=== PATIENT | female | born 1995 | race Caucasian/White ===

== ENCOUNTER → 2017-06-10 | Outpatient (CLI) | payer BC ==
[~2017-06-10] MED LIST: BCPILLS PO
[2017-06-10 10:11] LABS: ALT/SGPT 23 U/L (12-78); AST/SGOT 16 U/L (15-37); BLOOD UREA NITROGEN 13 mg/dl (7-18); BUN/CREATININE RATIO 24.6 (10-20); CALCIUM 8.5 mg/dl (8.5-10.1); CARBON DIOXIDE 25 mmol/L (21-32); CHLORIDE 105 mmol/L (98-107); CREATININE 0.55 mg/dl (0.60-1.20); GLUCOSE 89 mg/dl (70-99); POTASSIUM 4.1 mmol/L (3.5-5.1); SODIUM 136 mmol/L (136-145)
[2017-06-10 10:17] LABS: FERRITIN 69.2 ng/ml (8.0-388.0)
== END | disposition home or self-care (01) ==
LOC: C.LAB 07:24
DX: E61.1 Iron deficiency (principal); L40.9 Psoriasis, unspecified; M06.4 Inflammatory polyarthropathy

== ENCOUNTER → 2017-09-22 | Outpatient (CLI) | payer OTHER ==
[2017-09-22 09:32] LABS: BASO % 0.2 %; BASO ABS # 0.01 K/uL (0-0.2); EOS % 2.2 %; EOS ABS # 0.12 K/uL (0-0.5); HEMATOCRIT 41.4 % (37-47); HEMOGLOBIN 14.1 g/dL (12.0-16.0); IG# 0.01 K/uL (0.00-0.02); LYMPH ABS # 2.19 K/uL (1.2-3.4); MEAN CELL VOLUME 95.8 fL (80-100); MEAN CORPUSCULAR HEMOGLOBIN 32.6 pg (25-34); MEAN CORPUSCULAR HGB CONC 34.1 g/dl (32-36); MEAN PLATELET VOLUME 9.2 fL (7.4-10.4); MONO % 10.4 %; MONO ABS # 0.57 K/uL (0.11-0.59); NEUT ABS # 2.57 K/uL (1.4-6.5); PLATELET COUNT 274 K/uL (130-400); RED CELL DISTRIBUTION WIDTH CV 13.1 % (11.5-14.5); RED CELL DISTRIBUTION WIDTH SD 45.8 fL (36.4-46.3); WHITE BLOOD COUNT 5.47 K/uL (4.8-10.8)
[2017-09-22 09:58] LABS: ALT/SGPT 25 U/L (12-78); AST/SGOT 15 U/L (15-37); BLOOD UREA NITROGEN 15 mg/dl (7-18); CALCIUM 8.6 mg/dl (8.5-10.1); CARBON DIOXIDE 28 mmol/L (21-32); CREATININE 0.57 mg/dl (0.60-1.20); GLUCOSE 93 mg/dl (70-99); POTASSIUM 3.6 mmol/L (3.5-5.1); SODIUM 135 mmol/L (136-145)
== END | disposition home or self-care (01) ==
LOC: C.LAB 07:26
DX: M19.90 Unspecified osteoarthritis, unspecified site (principal); E61.1 Iron deficiency

== ENCOUNTER 2025-07-18 12:30 | Observation (INO) ==
--- NOTE | 2025-07-18 12:50 | Emergency Department Note ---
History of Present Illness General Chief complaint: Vaginal Bleeding Stated complaint: POST OP CKC, VAGINAL BLEEDING Time Seen by Provider: 07/18/25 12:36 History of Present Illness Maximum Pain Intensity: 5 This is an otherwise healthy 29-year-old female that presents to the emergency department via private vehicle with complaints of "vaginal bleeding". The patient is post CKC performed at [facility] about 3 weeks ago. She notes this was secondary to OLIVIER-3. She has had expected vaginal bleeding daily but the past 2 days notes larger amount of bleeding and passed a large clot this morning beginning around 10am. She was instructed if large clots are passed that she is to present for evaluation. She does feel overall tired and bit dizzy but overall well. No fever. She denies any pain at the present time. No fevers, chills, nausea or vomiting. No history of bleeding disorders but does note factor V history. No pertinent surgeries. No known drug allergies. 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 Beliefs That Will Affect Care: None Current Living Situation: Family Other Information That Helps Us Care for You: No Feels Safe at Home: Yes Safety Concerns: Feels Safe At This Time Assistive Devices: None Review of Systems A total of 10 systems reviewed and were otherwise negative Physical Exam Vital Signs Vital Signs - 24 hr 07/18/25 12:31 07/18/25 12:57 07/18/25 13:14 Temperature 36.3 C L Temperature Source Temporal Artery Scan Pulse Rate 95 H 93 H 79 Pulse Rate [Apical] Pulse Rhythm [Apical] Respiratory Rate 17 19 Respiratory Effort / Characteristics Non-Labored Spontaneous Respiratory Depth Normal Respiratory Pattern Regular Blood Pressure 106/75 Blood Pressure [Left Arm] Blood Pressure Mean 85 Blood Pressure Mean [Left Arm] Blood Pressure Position [Left Arm] Pulse Oximetry 96 100 Oxygen Delivery Method Room Air Room Air Sepsis Recent Fever Within 48 Hours No Sepsis New/Unexplained Change in Mental Status N/A Sepsis Action Taken by Nursing No Action Required 07/18/25 16:41 07/18/25 17:10 07/18/25 18:00 Temperature Temperature Source Pulse Rate 98 H Pulse Rate [Apical] 90 78 Pulse Rhythm [Apical] Regular Respiratory Rate 20 19 Respiratory Effort / Characteristics Non-Labored Spontaneous Non-Labored Spontaneous Respiratory Depth Normal Normal Respiratory Pattern Regular Blood Pressure Blood Pressure [Left Arm] 118/72 124/85 Blood Pressure Mean Blood Pressure Mean [Left Arm] 87 98 Blood Pressure Position [Left Arm] Lying Lying Pulse Oximetry 99 100 Oxygen Delivery Method Room Air Room Air Sepsis Recent Fever Within 48 Hours Sepsis New/Unexplained Change in Mental Status Sepsis Action Taken by Nursing VITAL SIGNS - Vital signs and nursing notes were reviewed. Stable and afebrile. GENERAL -29-year-old female appearing her stated age who is in no acute distress. Communicates well with provider and answers questions appropriately. SKIN - Without rashes. No meningeal or petechial rash. HEAD - NC/AT. EYES - PERRL with EOMI bilaterally. Sclera anicteric. EARS - No deformities of external structures noted on gross examination bilaterally. NOSE - Midline and without cyanosis. No epistaxis or purulent drainage noted. MOUTH/OROPHARYNX - Without perioral cyanosis. NECK - Neck with FROM. No nuchal rigidity. LUNGS - CTA CARDIAC - RRR ABDOMEN - Abdominal contour normal without pulsations or visible masses. BS normoactive all four quadrants. No tenderness, palpable masses, hepatosplenomegaly, or ascites noted. EXTREMITIES - No clubbing or peripheral cyanosis. +5/5 strength noted in UE/LE bilaterally. NEUROLOGIC - Cranial nerves II through XII grossly intact. PSYCH -alert, oriented and pleasant on exam Course Administered Medications Discontinued Medications Ferric Subsulfate (Ferric Subsulfate 8 Ml Vial) 8 ml TOP NOW STA Stop: 07/18/25 14:07 Last Admin: 07/18/25 16:17 Dose: Not Given [place]ed [place] [facility] [place] Chloride (Nss) 500 mls @ 500 mls/hr IV .Q1H ONE Stop: 07/18/25 16:44 Last Infusion: 07/18/25 16:42 Dose: Infused Documented By: zoraida Admin: 07/18/25 16:10 Dose: 500 mls/hr Documented By: zoraida Medical Decision Making Laboratory Data 07/18/25 15:47 07/18/25 12:45 Lab Results 07/18/25 07/18/25 07/18/25 Range/Units 12:45 12:51 12:56 WBC 7.27 (4.8-10.8) K/ul RBC 4.21 (4.20-5.40) M/uL Hgb 13.1 (12.0-16.0) g/dL POC Hgb 13.3 (12.0-16.0) g/dl Hct 38.4 (37.0-47.0) % POC Hct 39 (37-47) % MCV 91.2 (80.0-100.0) fL MCH 31.1 (25.0-34.0) pg MCHC 34.1 (32.0-36.0) g/dL RDW Std Deviation 43.6 (36.4-46.3) fL RDW Coeff of Alma Rosa 13.2 (11.5-14.5) % Plt Count 381 (130-400) K/uL MPV 8.3 L (9.4-12.4) fL Immature Gran % (Auto) 0.3 % Neut % (Auto) 68.8 % Lymph % (Auto) 22.3 % [place] % (Auto) 6.7 % Eos % (Auto) 1.5 % Baso % (Auto) 0.4 % Neut # (Auto) 5.00 (1.40-6.50) K/uL Lymph # (Auto) 1.62 (1.20-3.40) K/uL [place] # (Auto) 0.49 (0.11-0.59) K/uL Eos # (Auto) 0.11 (0.00-0.50) K/uL Baso # (Auto) 0.03 (0.00-0.20) K/uL Immature Gran # (Auto) 0.02 (0.01-0.20) K/uL PT 11.4 (9.0-12.0) Seconds INR 1.1 (0.9-1.1) APTT 29 (21-31) Seconds PTT Ratio 1.1 POC Sodium 139 (135-144) mmol/L Sodium 136 (136-145) mmol/L POC Potassium 3.4 (3.3-5.0) mmol/L Potassium 3.5 (3.5-5.1) mmol/L POC Chloride 99 L (101-112) mmol/L Chloride 101 (98-107) mmol/L Carbon Dioxide 28 (21-32) mmol/L POC Total CO2 24 (24-31) mmol/L Anion Gap 7 (3-11) POC Anion Gap 21.0 (16-25) mmol/L POC BUN 12 (7-18) mg/dl BUN 13 (6-23) mg/dl Creatinine 0.64 (0.6-1.2) mg/dl POC Creatinine 0.7 (0.6-1.3) mg/dl Est Cr Clr Drug Dosing 96.1 ml/min eGFR 121.09 BUN/Creatinine Ratio 20.3 H (10-20) Glucose 112 H (70-99(Fasting)) mg/dl POC Glucose (other) 110 H (70-99) mg/dl Calcium 8.8 (8.6-10.3) mg/dl POC Ioniz Calcium Chary 1.07 L (1.12-1.32) mmol/l Total Bilirubin 0.3 (0.2-1.0) mg/dl AST 18 (13-39) U/L ALT 16 (7-52) U/L Alkaline Phosphatase 40 (34-104) U/L Total Protein 7.7 (6.0-8.3) gm/dl Albumin 4.4 (3.4-5.0) gm/dl Globulin 3.3 (2.5-4.0) gm/dl Albumin/Globulin Ratio 1.3 (0.9-2) HCG, Qual Negative (Negative) Urine Color Red Urine Appearance Cloudy A (Clear) Urine pH 7.0 (4.5-7.5) Ur Specific [place] 1.025 (1.000-1.030) Urine Protein 3+ H (Negative) Urine Glucose (UA) Negative (Negative) Urine Ketones 1+ H (Negative) Urine Blood 3+ H (Negative) Urine Nitrite Negative (Negative) Urine Bilirubin Negative (Negative) Urine Urobilinogen Negative (Negative) Ur Leukocyte Esterase Negative (Negative) Urine RBC >20 H (0-2) /hpf Urine WBC 21-50 H (0-5) /hpf Ur Epithelial Cells 3-5 H (0-2) /hpf Urine Bacteria None Seen (None Seen) Urine Comment Blood Type AB Positive Antibody Screen NEGATIVE 07/18/25 Range/Units 15:47 WBC (4.8-10.8) K/ul RBC (4.20-5.40) M/uL Hgb 11.7 L (12.0-16.0) g/dL POC Hgb (12.0-16.0) g/dl Hct 33.9 L (37.0-47.0) % POC Hct (37-47) % MCV (80.0-100.0) fL MCH (25.0-34.0) pg MCHC (32.0-36.0) g/dL RDW Std Deviation (36.4-46.3) fL RDW Coeff of Alma Rosa (11.5-14.5) % Plt Count (130-400) K/uL MPV (9.4-12.4) fL Immature Gran % (Auto) % Neut % (Auto) % Lymph % (Auto) % [place] % (Auto) % Eos % (Auto) % Baso % (Auto) % Neut # (Auto) (1.40-6.50) K/uL Lymph # (Auto) (1.20-3.40) K/uL [place] # (Auto) (0.11-0.59) K/uL Eos # (Auto) (0.00-0.50) K/uL Baso # (Auto) (0.00-0.20) K/uL Immature Gran # (Auto) (0.01-0.20) K/uL PT (9.0-12.0) Seconds INR (0.9-1.1) APTT (21-31) Seconds PTT Ratio POC Sodium (135-144) mmol/L Sodium (136-145) mmol/L POC Potassium (3.3-5.0) mmol/L Potassium (3.5-5.1) mmol/L POC Chloride (101-112) mmol/L Chloride (98-107) mmol/L Carbon Dioxide (21-32) mmol/L POC Total CO2 (24-31) mmol/L Anion Gap (3-11) POC Anion Gap (16-25) mmol/L POC BUN (7-18) mg/dl BUN (6-23) mg/dl Creatinine (0.6-1.2) mg/dl POC Creatinine (0.6-1.3) mg/dl Est Cr Clr Drug Dosing ml/min eGFR BUN/Creatinine Ratio (10-20) Glucose (70-99(Fasting)) mg/dl POC Glucose (other) (70-99) mg/dl Calcium (8.6-10.3) mg/dl POC Ioniz Calcium Chary (1.12-1.32) mmol/l Total Bilirubin (0.2-1.0) mg/dl AST (13-39) U/L ALT (7-52) U/L Alkaline Phosphatase (34-104) U/L Total Protein (6.0-8.3) gm/dl Albumin (3.4-5.0) gm/dl Globulin (2.5-4.0) gm/dl Albumin/Globulin Ratio (0.9-2) HCG, Qual (Negative) Urine Color Urine Appearance (Clear) Urine pH (4.5-7.5) Ur Specific [place] (1.000-1.030) Urine Protein (Negative) Urine Glucose (UA) (Negative) Urine Ketones (Negative) Urine Blood (Negative) Urine Nitrite (Negative) Urine Bilirubin (Negative) Urine Urobilinogen (Negative) Ur Leukocyte Esterase (Negative) Urine RBC (0-2) /hpf Urine WBC (0-5) /hpf Ur Epithelial Cells (0-2) /hpf Urine Bacteria (None Seen) Urine Comment Blood Type Antibody Screen MDM Narrative Patient was seen and evaluated as above in room B04b. Review was performed of triage nursing notes and vital signs. After obtaining a thorough history and physical examination the above work up was performed. Patient presents to us today for evaluation of vaginal bleeding. She believes that she is menstruating but also recently had CKC performed about 3 weeks ago. She is hemodynamically stable. Options of care were discussed with the patient. IV access was established. Labs were drawn. There is no leukocytosis or concerning anemia. Coags normal. No evidence of kidney or liver failure. Glucose 112. hCG negative. Urinalysis reveals sample likely consistent with that of blood, no clear evidence of UTI clinically. [address] Stapleton. We discussed performing pelvic examination and potential packing the bleeding area. Verbal consent was obtained. I discussed pelvic examination with the patient. GILBERT Quezada present at bedside to testing projects administrator. Speculum was advanced and there was a large amount of bright red blood pouring into the speculum. Area was cleansed with gauze and repeat examination again reveals blood pouring into the speculum. Cervix was not clearly seen. [id number] spoke with Dr. Stapleton about the pelvic exam, he will come assess the patient. Please refer to Dr. Stapleton's note regarding patient evaluation and procedure. Patient was offered analgesia and respectfully declined. Plan at this time is observation here in the emergency department to determine if there is adequate hemostasis from the cervix. Patient was administered intravenous fluids for hydration as she appears a bit clinically dry. Patient case was signed out to KUSUM Glasgow at 1615 hrs. Please refer to further documentation regarding her stay. Hemoglobin recheck shows a drop of 1.4 points, now 11.7. Patient hemodynamically stable. GCS: 15 In the evaluation and treatment of this patient the following differential diagnoses were entertained: Vaginal bleeding, postprocedural bleeding, UTI, laceration, among others. Impression & Plan Vaginal bleeding, History of conization of cervix Discharge Plan Visit Data Chief Complaint: Vaginal Bleeding Stated Complaint: POST OP CKC, VAGINAL BLEEDING ED Provider: Emanuel Dominguez ED Midlevel Provider: Nelda Rasmussen Discharge Problem: Vaginal bleeding, History of conization of cervix Patient Disposition: Admitted As Inpatient Condition: Good Discharge Instructions Interventions: ED Discharge Assessment Last Done: 07/18/25 20:12
[2025-07-18 13:02] LABS: Hematocrit (blood only) 38.4 % (37.0-47.0); Hemoglobin 13.1 g/dL (12.0-16.0); Immature Granulocytes # (auto) 0.02 K/uL (0.01-0.20); Immature Granulocytes % (auto) 0.3 %; Mean Corpuscular Hemoglobin 31.1 pg (25.0-34.0); Mean Corpuscular Volume 91.2 fL (80.0-100.0); Platelet Count 381 K/uL (130-400); RDW Standard Deviation 43.6 fL (36.4-46.3); Red Blood Count 4.21 M/uL (4.20-5.40); White Blood Count 7.27 K/ul (4.8-10.8)
[2025-07-18 13:14] LABS: Appearance Urine Cloudy (Clear); Glucose Urine UA Negative (Negative)
[2025-07-18 13:18] LABS: Alanine Aminotransferase 16.0 U/L (7-52); Albumin Globulin Ratio 1.3 (0.9-2); Albumin Level 4.4 gm/dl (3.4-5.0); Alkaline Phosphatase 40.0 U/L (34-104); Anion Gap 7.0 (3-11); Bilirubin,Total 0.3 mg/dl (0.2-1.0); Blood Urea Nitrogen 13.0 mg/dl (6-23); Calcium 8.8 mg/dl (8.6-10.3); Carbon Dioxide 28.0 mmol/L (21-32); Chloride 101.0 mmol/L (98-107); Creatinine Clr Calc Pharmacy 96.1 ml/min; Globulin 3.3 gm/dl (2.5-4.0); Glucose 112.0 mg/dl (70-99(Fasting)); Potassium 3.5 mmol/L (3.5-5.1); Sodium 136.0 mmol/L (136-145); Total Protein 7.7 gm/dl (6.0-8.3)
[2025-07-18 13:30] LABS: INR 1.1 (0.9-1.1); Partial Thromboplastin Time 29 Seconds (21-31); Prothrombin Time 11.4 Seconds (9.0-12.0)
[2025-07-18 13:33] LABS: Pregnancy Test, Serum Negative (Negative)
--- NOTE | 2025-07-18 14:59 | Consultation ---
Date of Consultation July 18, 2025 Assessment & Plan (1) History of conization of cervix: Plan Surgicel packing. Followed by observation. History of Present Illness Reason for Consultation: Heavy vaginal bleeding with clotting Status post cold knife conization 3 weeks prior to admission Attending Physician: ashwin History of Present Illness Patient is a 29-year-old male she is in good general health she is on no form of control. 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 Last menstrual period was 07/16/2025 patient underwent cold knife conization 3 weeks ago for OLIVEIR-3. Bleeding was moderate until about 10:30 AM when she began to pass large clots. She was seen in the ER. At that time her hemoglobin was checked and was 12. I went down to the ER did speculum exam the vagina was filled with clotted blood. I was able to remove the clots. I was able to visualize the cervix. Which seem to be healing well. There was no pumper's. I packed with some Surgicel packing was able to stop the bleeding. Will observe the patient for the next several hours in the ER to see if bleeding recurs Allergies Allergy/AdvReac Type Severity Reaction Status Date / Time Sulfa (Sulfonamide Allergy HIVES AND Unverified 08/22/11 04:33 Antibiotics) FEVER Home Medications Medication Instructions Recorded Confirmed Type Control Pills 1 tab PO DAILY ##0 11/20/10 History Patient History Social History Smoking Status: Never smoker Preferred Language: Fijian Feels Safe at Home: Yes Physical Exam Physical Exam: Patient appeared to be a well-developed well-nourished 29-year-old white female alert oriented x 3 cooperative no acute distress peer to stated age. Patient had multiple tattoos on her arms and chest. Heart had regular rhythm S1 and S2 were normal. Lungs are clear to auscultation percussion. Neck was supple trachea midline thyroid was not enlarged no adenopathy appreciated. There was no CVA tenderness. There is no abdominal tenderness. Pelvic exam revealed vaginal vault filled with clotted blood. Visualization of the cervix reveals status post conization cervix seems to be healing well. There was no pumping arteries visualized at this time. No calf tenderness Results & Data Vital Signs (Past 12 Hours) Vital Signs Temp Pulse Resp BP Pulse Ox O2 Del Method 07/18/25 13:14 79 07/18/25 12:57 93 H 19 100 Room Air 07/18/25 12:31 36.3 C L 95 H 17 106/75 96 Room Air Laboratory Results hgb Diagnostic Findings Cervix appears status post conization. No active bleeding noted at the time of exam. Medications Administered Cervix packed with Surgicel gauze
[2025-07-18 16:00] LABS: Hematocrit (blood only) 33.9 % (37.0-47.0); Hemoglobin 11.7 g/dL (12.0-16.0)
[2025-07-18] MEDS: SODIUM CHLORIDE 0.9% 500 ML IV ONE (16:10)
[2025-07-18] MEDS: FERRIC SUBSULFATE 8 ML VIAL TOP STA (16:17)
[2025-07-18] MEDS ORDERED: ACETAMINOPHEN 325 MG TAB PO PRN (19:27)
--- NOTE | 2025-07-18 20:16 | Emergency Department Note ---
ED Visit Note The patient was signed out to me at change of shift, pending reevaluation by fleet mechanic. Patient was reevaluated at bedside by Dr. Stapleton, who recommended the patient be admitted under his services, for close will watch overnight. Please refer to his documentation for further patient workup and care. .
[2025-07-19 03:41] VITALS: O2SAT 98
[2025-07-19 07:01] LABS: Hematocrit (blood only) 32.9 % (37.0-47.0); Hemoglobin 11.2 g/dL (12.0-16.0)
[2025-07-19 07:56] VITALS: BP 123/69; RESP 18; TEMP 98.2
--- NOTE | 2025-07-19 09:46 | Obstetrical Progress Note ---
Date of Service July 19, 2025 Assessment & Plan Admission and Anticipated Discharge Date Admission Date: July 18, 2025 Subjective doing well vaginal bleeding scant hgb 11.2 ambulating well Results & Data Vital Signs (Past 12 Hours) Vital Signs Temp Pulse Resp BP Pulse Ox O2 Del Method 07/19/25 07:25 Room Air 07/19/25 07:25 36.8 C 88 18 123/69 98 Room Air 07/19/25 03:41 36.6 C 87 14 103/54 L 98 Room Air 07/18/25 23:53 36.5 C 71 14 99/66 L 99 Room Air
--- NOTE | 2025-07-19 09:57 | Discharge Summary ---
Date of Service July 19, 2025 Admission HPI Per Admitting Provider Patient is a 29-year-old male. Had undergone conization for OLIVIER-3 3 weeks prior to admission. Was seen in the ER for heavy vaginal bleeding with clotting. Her initial hemoglobin was 14.1. Saw the patient in the ER. Speculum exam revealed a large amount of bright red clotted blood. Estimated blood loss when I was there over 500 mL. I was able to visualize the cervix. Conization seem to be healing well. There was no active pumper's. I used 2 packs of Surgicel packing to pack the endocervix and the exterior of the cervix. After the packing was performed the bleeding was controlled. The patient overnight for observation. During the evening she was able to ambulate well foyer to have a BM no excessive bleeding in fact vaginal bleeding was minimal. Repeat hemoglobin in the morning was 11.2. Patient was discharged back to her original physician. And told to call if she had any problems. Discharge Data Consultations 07/18/25 18:48 ED Decision to Admit Stat Procedures Performed Visualization of the cervix. Packing with Surgicel. Hospital Course (1) Vaginal bleeding: Surgicel packing (2) History of conization of cervix: Surgicel packing Plan Continue with routine follow-up with their [employer] Discharge Instructions Call if any difficulty with recurrent heavy bleeding
[2025-07-19 10:06] VITALS: PULSE 92
== END 2025-07-19 10:55 | disposition home or self-care (01) ==
LOC: 4E1 12:30 → ED 12:30 → 4E1 20:12